=== PATIENT | female | born 1955 | race African-American/Black ===

== ENCOUNTER 2022-07-08 01:10 | Emergency (ER) | payer OTHER ==
[2022-07-08 01:31] VITALS: BP 170/83; PULSE 83; RESP 18; TEMP 98; BMI 19.3
== END 2022-07-08 02:59 | disposition home or self-care (01) ==
LOC: JER 01:10
DX: R21 Rash and other nonspecific skin eruption (principal)
CPT/HCPCS: 99281-25

== ENCOUNTER 2022-07-12 14:24 | Emergency (ER) | payer OTHER ==
[2022-07-12 15:00] VITALS: BP 109/78; PULSE 98; RESP 19; TEMP 97.9; BMI 19.3
[2022-07-12 20:42] LABS: BASO % 0.3 % (0-2.0); EOS % 8.1 % (0-4.5); HEMATOCRIT 38.6 % (32.4-45.2); HEMOGLOBIN 12.6 GM/dL (10.7-15.3); LYMPH % 28.3 % (8-40); MCH 29.8 pg (25.7-33.7); MCHC 32.5 g/dl (32.0-36.0); MEAN CELL VOLUME 91.5 fl (80-96); MEAN PLT VOLUME 8.3 fl (7.5-11.1); MONO % 6.9 % (3.8-10.2); NEUT % 56.4 % (42.8-82.8); PLATELET COUNT 257 10^3/uL (134-434); RBC 4.21 M/mm3 (3.60-5.2); RDW 13.3 % (11.6-15.6); WHITE BLOOD COUNT 9.3 K/mm3 (4.0-10.0)
[2022-07-12 21:02] LABS: ALBUMIN 3.4 g/dl (3.4-5.0); BLOOD UREA NITROGEN 9.4 mg/dL (7-18); CALCIUM 8.9 mg/dL (8.5-10.1)
[2022-07-12 21:05] LABS: CREATININE 0.6 mg/dL (0.55-1.3)
[2022-07-12] MEDS ORDERED: DALBAVANCIN HCL 1,500 MG in DEXTROSE 5%-WATER - 500 ML IVPB ONE ×2 (21:06→22:45)
[2022-07-12 21:07] LABS: BILIRUBIN,TOTAL 0.2 mg/dL (0.2-1); TOT PROT 7.3 g/dl (6.4-8.2)
[2022-07-12 21:14] LABS: ERYTHROCYTE SEDIMENTATION RATE 16 mm/hr (0-30)
[2022-07-12] MEDS ORDERED: DALBAVANCIN HCL 500 MG VIAL (RESTRICTED TO ID ONLY) IVPB ONE (21:25)
[2022-07-12] MEDS ORDERED: DEXAMETHASONE SOD PHOSPHATE 10 MG/1 ML VIAL IVPUSH ONE (23:22)
[2022-07-12] MEDS ORDERED: DEXAMETHASONE SOD PHOSPHATE 10 MG/1 ML VIAL ONE (23:44)
== END 2022-07-12 23:58 | disposition home or self-care (01) ==
LOC: JER 14:24
PROC: 3E03329 Introduction of Other Anti-infective into Peripheral Vein, Percutaneous Approach (ICD-10-PCS; principal; 2022-07-12)
PROC: 3E0333Z Introduction of Anti-inflammatory into Peripheral Vein, Percutaneous Approach (ICD-10-PCS; 2022-07-12)
DX: R21 Rash and other nonspecific skin eruption (principal); M25.472 Effusion, left ankle
CPT/HCPCS: 36415; 80053; 85025; 85651; 86140; 93971-TC; 99284-25; J0875; J1100